=== PATIENT | male | born 1980 | race Caucasian/White ===

== ENCOUNTER → 2017-07-14 | Emergency (ER) | payer OTHER ==
[~2017-07-14] VITALS: Ht 180.3 cm; Wt 95.3 kg
[~2017-07-14] MED LIST: ANUSOL-HC25 MG RC; DIAZEPAM10 MG PO; KETO10TA2 PO; MEDROLPACK PO
== END | disposition home or self-care (01) ==
LOC: ER 06:07
DX: S76.911A Strain of unspecified muscles, fascia and tendons at thigh level, right thigh, initial encounter (principal); Y93.56 Activity, jumping rope; Y93.89 Activity, other specified; Y92.89 Other specified places as the place of occurrence of the external cause; Y99.8 Other external cause status

== ENCOUNTER 2020-12-20 13:15 | Emergency (ER) | payer OTHER ==
[~2020-12-20] VITALS: Ht 180.3 cm; Wt 98.4 kg
== END 2020-12-20 15:48 | disposition home or self-care (01) ==
LOC: ER 13:15
DX: S99.922A Unspecified injury of left foot, initial encounter (principal); W19.XXXA Unspecified fall, initial encounter; Y92.410 Unspecified street and highway as the place of occurrence of the external cause